=== PATIENT | female | born 1995 | race Hispanic/Latino ===

== ENCOUNTER 2019-03-26 11:56 | Emergency (ER) | payer OTHER ==
[2019-03-26 12:25] VITALS: BMI 37.8
--- NOTE | 2019-03-26 12:55 | ED PDOC ---
HPI: General Adult Time Seen by Provider: 03/26/19 12:36 Chief Complaint (Nursing): Trauma Additional Complaint(s): 23 y/o F with a PMHx of migraines c/o headache that began 2 days after a [employer] plastic tower fell on her R side of head. Pain is described as throbbing, 8/10 intensity, top of head and R side, constant, NOT alleviating and associated with intermittent short episodes of blurry vision that last a few seconds. Pt took Tylenol last night with NO improvement. Pt reports that current pain does not seem to be like migraine. Pt had nausea and vomited once after trauma, still mildly nauseous. PMD: in [facility]. NKDA Meds: none. PMHx: Migraines (treated with topiramate in the past) PSHx: denied FHx: NC SHx: Pt reports ocasional vaping, alcohol socially, and intermittent marihuana smoking (last use yesterday) Past Medical History Vital Signs: Last Vital Signs Temp 98.6 F 03/26/19 12:25 Pulse 74 03/26/19 12:25 Resp 15 03/26/19 12:25 BP 127/81 03/26/19 12:25 Pulse Ox 97 03/26/19 12:25 Primary Care Provider: DoctorRosa - Medical History PMH: Migraine - Surgical History Surgical History: No Surg Hx - Family History Family History: States: No Known Family Hx - Living Arrangements Living Arrangements: With Friends/Others - Social History Current smoker - smoking cessation education provided: Yes (Vaping ocasionally) Alcohol: Social - Allergies Allergies/Adverse Reactions: Allergies Allergy/AdvReac Type Severity Reaction Status Date / Time No Known Allergies Allergy Verified 03/26/19 12:24 Physical Exam - Physical Exam Appears: Positive for: No Acute Distress Head Exam: Positive for: NORMOCEPHALIC Skin: Positive for: Normal Color, Warm Eye Exam: Positive for: EOMI, PERRL ENT: Positive for: Normal ENT Inspection Neck: Positive for: Normal, Painless ROM, Supple Cardiovascular/Chest: Positive for: Regular Rate, Rhythm Respiratory: Positive for: Normal Breath Sounds Gastrointestinal/Abdominal: Positive for: Bowel Sounds, Soft. Negative for: Tenderness, Distended, Guarding Extremity: Positive for: Normal ROM. Negative for: Tenderness, Calf Tenderness, Capillary Refill Neurological/Psych: Positive for: Awake, Alert, Normal Tone, Oriented (x3), Mood/Affect (normal), Gait (normal), Cerebellar Tests (normal), bill peddler II-XII (normal). Negative for: Facial Droop - Laboratory Results Result Diagrams: 03/26/19 13:00 03/26/19 13:00 - ECG O2 Sat by Pulse Oximetry: 97 Medical Decision Making Medical Decision Makin:10 --Ordered CBC, BMP, Coags, urine test --Head CT ordered. 14:20 --Head CT was unremarkable. --Toradol IM ordered. 15:30 --Pt was re-evaluated. Headache is now 3/10 intensity. --Pt was informed of CT results. --Pt was recommended to f/u with PCP within 2-3 days. (PCP is in [facility]) --Concussion precautions given. If worsening of symptoms, pt instructed to f/u with neurologist. Disposition - Clinical Impression Clinical Impression: Head injury due to trauma - Patient ED Disposition Is Patient to be Admitted: No Counseled Patient/Family Regarding: Studies Performed - Disposition Disposition: Routine/Home Disposition Time: 15:50 Condition: IMPROVED Additional Instructions: follow up with your primary doctor in 1-2 days avoid exercise, heavy lifting or any strenuous activity as well as intense reading, screen time. return to the ED with any worsening or concerning symptoms Instructions: Concussion, Adult (DC) Forms: [employer] (Armenian)
[2019-03-26 13:18] LABS: BASO % 0.4 % (0.0-2.0); EOS # 0.1 K/uL (0.0-0.7); EOS % 1.7 % (0.0-4.0); HEMOGLOBIN 14.3 g/dL (12.0-16.0); LYMPH # 2.8 K/uL (1.0-4.3); LYMPH % 32.6 % (20.0-40.0); MEAN CELL VOLUME 92.8 fl (81.0-99.0); MEAN CORPUSCULAR HEMOGLOBIN 32.9 pg (27.0-31.0); MEAN CORPUSCULAR HGB CONC 35.4 g/dL (33.0-37.0); MEAN PLATELET VOLUME 7.8 fl (7.2-11.7); MONO # 1.1 K/uL (0.0-0.8); MONO % 12.9 % (0.0-10.0); NEUT # 4.5 K/uL (1.8-7.0); NEUT % 52.4 % (50.0-75.0); RBC 4.36 Mil/uL (3.80-5.20); RED CELL DISTRIBUTION WIDTH 12.9 % (11.5-14.5); WHITE BLOOD COUNT 8.5 K/uL (4.8-10.8)
[2019-03-26 13:30] LABS: INR 1.1; PROTHROMBIN TIME 12.1 Seconds (9.8-13.1)
[2019-03-26 13:31] LABS: BLOOD UREA NITROGEN 19 mg/dl (7-17); CALCIUM 8.9 mg/dL (8.4-10.2); GFR NON-AFRICAN AMERICAN > 60
--- NOTE | 2019-03-26 14:10 | CT ---
Date of service: 03/26/2019 PROCEDURE: CT HEAD WITHOUT CONTRAST. HISTORY: head trauma COMPARISON: None available. TECHNIQUE: Axial computed tomography images were obtained through the head/brain without intravenous contrast. Radiation dose: Total exam DLP = 873.98 mGy-cm. This CT exam was performed using one or more of the following dose reduction techniques: Automated exposure control, adjustment of the mA and/or kV according to patient size, and/or use of iterative reconstruction technique. FINDINGS: HEMORRHAGE: No intracranial hemorrhage. BRAIN: Normal fischer-white matter differentiation and density are appreciated throughout the cerebrum and cerebellum with the brainstem appearing unremarkable as well. There is no mass effect. There is no suspicious extra-axial fluid collection and the midline brain anatomy appears diffusely unremarkable. VENTRICLES: Unremarkable. No hydrocephalus. CALVARIUM: Venous Rosen noted at the left parietal bone vertex medially. No fracture appreciated throughout the calvarium or skull base. PARANASAL SINUSES: Unremarkable as visualized. No significant inflammatory changes. MASTOID AIR CELLS: Unremarkable as visualized. No inflammatory changes. OTHER FINDINGS: None. IMPRESSION: Unremarkable unenhanced head CT. No fracture identified.
[2019-03-26 15:54] VITALS: BP 113/65; PULSE 72; RESP 16; TEMP 98.2
[2019-03-26 15:55] VITALS: O2SAT 97
== END 2019-03-26 15:55 | disposition home or self-care (01) ==
LOC: H.ER 11:56
DX: S09.90XA Unspecified injury of head, initial encounter (principal); W22.8XXA Striking against or struck by other objects, initial encounter; F17.290 Nicotine dependence, other tobacco product, uncomplicated
CPT/HCPCS: 70450; 80048; 81025; 85025; 85610; 85730; 96372; 99284; J1885